=== PATIENT | female | born 1955 | race Caucasian/White ===

== ENCOUNTER → 2021-12-11 | Outpatient (CLI) | payer MEDICARE | LOC: EMI 08:00 | DX: M51.37 Other intervertebral disc degeneration, lumbosacral region (principal); M51.14 Intervertebral disc disorders with radiculopathy, thoracic region; M51.34 Other intervertebral disc degeneration, thoracic region; M51.36 Other intervertebral disc degeneration, lumbar region; M51.17 Intervertebral disc disorders with radiculopathy, lumbosacral region; M50.11 Cervical disc disorder with radiculopathy, high cervical region | CPT/HCPCS: 72141; 72146; 72148 ==